=== PATIENT | female | born 1950 | race Caucasian/White ===

== ENCOUNTER → 2017-01-18 | Outpatient (CLI) | payer SELFPAY ==
--- NOTE | 2017-01-19 04:41 | RAD ---
Procedure: XR CHEST 2 VIEWS Exam Date: 01/18/2017 Ordering Provider: Mercy Graf Clinical Indication: PERSISTENT COUGH AND DYSPNEA Comparison: None Findings: Cardiac silhouette: Normal Pulmonary vasculature : Normal Mediastinal contour: Normal Aortic contour: Aortic calcification and tortuosity. Focal lung consolidation: No focal lung consolidation. Lungs are hyperinflated. Bibasilar scarring. Pleural effusion: No pleural effusion. Pneumothorax: None Acute bony or soft tissue abnormality: None Impression: 1. No acute abnormalities in the chest. 2. COPD. Electronically signed by: Hernan Gordon MD 01/19/2017 4:40 AM CDT
== END | disposition home or self-care (01) ==
LOC: RAD 12:45
PROVIDERS: ATTEND Nurse Practitioner Family
DX: J44.1 Chronic obstructive pulmonary disease with (acute) exacerbation (principal)

== ENCOUNTER → 2017-02-22 | Outpatient (CLI) | payer MEDICARE ==
[~2017-02-22] MED LIST: ALBUTEROL SULFATE 2.5 MG/3 ML VIAL NEB ONE
== END | disposition home or self-care (01) ==
LOC: RESP 13:55
PROVIDERS: ATTEND Nurse Practitioner Family
DX: J44.9 Chronic obstructive pulmonary disease, unspecified (principal); Z13.220 Encounter for screening for lipoid disorders; R53.83 Other fatigue; E78.01 Familial hypercholesterolemia; R63.6 Underweight
CPT/HCPCS: 36415; 80053; 80061; 84443; 85025; 93005; 94060; J7611

== ENCOUNTER 2017-05-14 17:11 | Emergency (ER) | payer MEDICARE ==
[2017-05-14 17:36] VITALS: BP 154/89; TEMP 97.2; O2SAT 94
[2017-05-14] MEDS ORDERED: predniSONE 20 MG TAB PO ONE (17:49)
--- NOTE | 2017-05-14 17:49 | ED.PDOC ---
History of Present Illness - General Chief Complaint: Bite: Animal/Insect/Human Stated Complaint: Insect Bite on L Forearm-localized edema Time Seen by Provider: 05/14/17 17:13 Source: patient Exam Limitations: no limitations - History of Present Illness Initial Comments: the patient is a 67-year-old female presenting secondary to swelling around the insect sting to her left forearm present for the last 2 days. This appears to be mainly an allergic hydrops. no respiratory symptoms. She is unsure what stung her but it didburn. No shortness of breath. No evidence of any infectious cellulitis. No evidence of tissue necrosis. Severity: mild Improving Factors: nothing Worsening Factors: nothing Associated Symptoms: denies symptoms Allergies/Adverse Reactions: Allergies Codeine Allergy (Verified 05/14/17 17:27) Tetracycline Allergy (Verified 05/14/17 17:27) Home Medications: Ambulatory Orders Albuterol Inhaler [Ventolin Hfa Inhaler] 1 puff INH Q4HR 05/14/17 Lisinopril 10 mg PO DAILY 05/14/17 Milk Thistle (Silybum Marianum [Milk Thistle] 500 mg PO DAILY 05/14/17 Multiple Vitamin [Multi Vitamin] 1 tab PO DAILY 05/14/17 Review of Systems - Review of Systems Constitutional: States: no symptoms reported EENTM: States: no symptoms reported Respiratory: States: no symptoms reported Cardiology: States: no symptoms reported Gastrointestinal/Abdominal: States: no symptoms reported Genitourinary: States: no symptoms reported Musculoskeletal: States: no symptoms reported Skin: States: see HPI Neurological: States: no symptoms reported Endocrine: States: no symptoms reported All other Systems: No Change from Baseline Past Medical History (General) - Patient Medical History Hx Stroke: No Hx of COPD: Yes Hx Congestive Heart Failure: No Hx Hypertension: Yes Hx Diabetes: No Hx Cancer: Yes - Cervical Hx Hepatitis C: No Surgical History: appendectomy, tonsillectomy - Vaccination History Hx Tetanus, Diphtheria Vaccination: No Hx Influenza Vaccination: No Hx Pneumococcal Vaccination: No - Social History Hx Tobacco Use: Yes Hx Chewing Tobacco Use: No Hx Alcohol Use: Yes Hx Substance Use: No Hx Substance Use Treatment: No Hx Depression: No Feels Threatened In Home Enviroment: No Feels Threatened In a Relationship: No Hx Physical Abuse: No Hx Emotional Abuse: No Hx Suspected Abuse: No - Female History Patient is a Female of Child Bearing Age (10 -59 yrs old): No Patient : No Family Medical History - Family History Grandparents Family History: Unknown Physical Exam - Physical Exam General Appearance: Alert, Comfortable, No apparent distress Eye Exam: bilateral normal Ears, Nose, Throat: hearing grossly normal Neck: full range of motion Respiratory: no respiratory distress, no accessory muscle use Cardiovascular/Chest: normal peripheral pulses, no edema Extremity: normal range of motion, non-tender, no pedal edema, normal capillary refill, other - he patient has mild edema to her left forearm where she had an insect sting. She is neurovascularly intact. Neurologic: alert, normal mood/affect, oriented x 3 Skin Exam: normal color - ee above Comments: Vital Signs - 8 hr 05/14/17 17:29 Temperature 97.2 F L Pulse Rate [R 82 Arm] Respiratory 18 Rate Blood Pressure 154/89 [R Arm] O2 Sat by Pulse 94 L Oximetry Progress - Progress Progress: 05/14/17 17:49 the patient is a 67-year-old female with a localized allergic reaction to an insect sting. The patient is given one dose of oral prednisone. No evidence of infection at this time. She needs to continue her home medications for her COPD. ER warnings were given for any significant worsening. - EKG/XRAY/CT CT Ordered: No CT Interpretation Call Back: No Departure - Departure Clinical Impression: Insect bites Qualifiers: Encounter type: initial encounter Qualified Code(s): W57.XXXA - Bitten or stung by nonvenomous insect and other nonvenomous arthropods, initial encounter Disposition: Discharge to Home or Self Care Condition: Fair Departure Forms: ED Discharge - Pt. Copy, Patient Portal Self Enrollment Instructions: DI for Insect Bites and Stings Diet: regular diet Activity: increase activity as tolerated Referrals: Tg López NP [Primary Care Provider] - 1-2 Weeks Home Medications: Ambulatory Orders Albuterol Inhaler [Ventolin Hfa Inhaler] 1 puff INH Q4HR 05/14/17 Lisinopril 10 mg PO DAILY 05/14/17 Milk Thistle (Silybum Marianum [Milk Thistle] 500 mg PO DAILY 05/14/17 Multiple Vitamin [Multi Vitamin] 1 tab PO DAILY 05/14/17 Additional Instructions: the patient is a 67-year-old female with a localized allergic reaction to an insect sting. The patient is given one dose of oral prednisone. No evidence of infection at this time. She needs to continue her home medications for her COPD. ER warnings were given for any significant worsening.
== END 2017-05-14 18:08 | disposition home or self-care (01) ==
LOC: ER 17:11
DX: S50.862A Insect bite (nonvenomous) of left forearm, initial encounter (principal); J44.9 Chronic obstructive pulmonary disease, unspecified; Z87.891 Personal history of nicotine dependence; Z85.41 Personal history of malignant neoplasm of cervix uteri; Z88.6 Allergy status to analgesic agent; Z88.3 Allergy status to other anti-infective agents; Z79.899 Other long term (current) drug therapy; W57.XXXA Bitten or stung by nonvenomous insect and other nonvenomous arthropods, initial encounter; Y92.9 Unspecified place or not applicable

== ENCOUNTER → 2017-12-08 | Outpatient (CLI) | payer MEDICARE ==
--- NOTE | 2017-12-11 08:07 | RAD ---
EXAM DESCRIPTION: Chest,2 Views CLINICAL HISTORY: 67 years Female, COPD COMPARISON: CT chest with contrast dated 12/08/2017. Radiographs of the chest dated 01/18/2017. TECHNIQUE: PA and lateral radiographs of the chest were obtained. FINDINGS: Trachea is midline.The cardiomediastinal silhouette is normal in size. The pulmonary vasculature is within normal limits. Hyperinflated lungs most likely secondary to emphysema. There is blunting of the bilateral costophrenic angles most likely secondary to atelectasis and/or scarring.No evidence of pleural effusions.No evidence of pneumothorax. IMPRESSION: Emphysema. Otherwise no gross radiographic abnormality. Electronically signed by: Madhavi Chan MD 12/11/2017 8:05 AM CDT
--- NOTE | 2017-12-11 08:25 | CT ---
EXAM DESCRIPTION: Chest w/Contrast CLINICAL HISTORY: 67 years Female, COPD COMPARISON: Radiographs of the chest dated 01/10/2017. TECHNIQUE: Contiguous thin section axial images through the chest were obtained after the administration of intravenous contrast. Sagittal and coronal reconstructions were reviewed. FINDINGS: The visualized thyroid gland and supraclavicular region appear normal. No evidence of abnormally enlarged mediastinal, hilar or axillary lymphadenopathy. Trachea is midline and the central tracheobronchial tree is patent. Severe emphysema is identified in both lungs, worse in the right upper lobe. Airspace opacities in the bilateral lower lobes most likely represent atelectasis. No nodules or masses are visualized. No evidence of pleural effusions. The heart is normal in size with no pericardial effusion. There is aneurysmal dilatation of the ascending aorta measuring up to 4.2 x 4.4 cm. Moderate atherosclerotic disease is noted in the descending thoracic aorta. The superior vena cava is normal in size and caliber. Moderate to severe coronary artery atherosclerosis. The esophagus appears normal throughout its visualized length. 5 mm calculus is noted in the interpolar region of the left kidney. No other abnormality is identified in the imaged upper abdomen. Mild degenerative changes are identified throughout the thoracic spine. Superior endplate wedging of T4 and T5 vertebral bodies is noted. IMPRESSION: 1. Severe emphysema with bibasilar atelectasis. 2. Ascending aortic aneurysm measuring 4.2 x 4.4 cm. 3. Nonobstructive 5 mm calculus is noted in the interpolar region of the left kidney. This exam was performed according to our departmental dose-optimization program, which includes automated exposure control, adjustment of the mA and/or kV according to patient size and/or use of iterative reconstruction technique. Electronically signed by: Madhavi Chan MD 12/11/2017 8:23 AM CDT
== END ==
LOC: CT 13:35
PROVIDERS: ATTEND Nurse Practitioner Family
DX: J44.9 Chronic obstructive pulmonary disease, unspecified (principal); I71.4 Abdominal aortic aneurysm, without rupture; N20.0 Calculus of kidney

== ENCOUNTER 2019-05-03 12:24 | Emergency (ER) | payer MEDICARE ==
--- NOTE | 2019-05-03 14:34 | RAD ---
EXAM DESCRIPTION: Forearm,Left CLINICAL HISTORY: 69 years Female, fall COMPARISON: None. FINDINGS/IMPRESSION: Two views of the left forearm demonstrate an impacted fracture with dorsal angulation of the distal radius with what appears to be an intact distal ulna. No definite carpal dislocation is seen but mild scapholunate dissociation is suspected. Radial fracture is at the metaphyseal level with modest dorsal angulation present. The mid and proximal forearm appears intact. Semiopaque splint along the ulnar aspect of the forearm is noted in place. Electronically signed by: Wojciech Covarrubias MD 05/03/2019 2:33 PM CDT
--- NOTE | 2019-05-03 14:37 | CT ---
EXAM DESCRIPTION: Head CLINICAL HISTORY: fall COMPARISON: None available TECHNIQUE: Non contrast cranial CT This exam was performed according to our departmental dose-optimization program, which includes automated exposure control, adjustment of the mA and/or kV according to patient size and/or use of iterative reconstruction technique. FINDINGS: Ventricles and sulci are unremarkable for age. There is no hemorrhage or mass or subdural hematoma. There are no significant white matter abnormalities detected. The calvarium is unremarkable. The visualized paranasal sinuses and the mastoids are clear. IMPRESSION: 1. Normal unenhanced head CT with no evidence of acute intracranial injury. Electronically signed by: Wojciech Covarrubias MD 05/03/2019 2:36 PM CDT
--- NOTE | 2019-05-03 14:44 | CT ---
EXAM DESCRIPTION: Cervical Spine CLINICAL HISTORY: fall COMPARISON: None Available. TECHNIQUE: Cervical CT is performed with thin-section axial imaging. MPRs are created and reviewed as well. This exam was performed according to our departmental dose-optimization program, which includes automated exposure control, adjustment of the mA and/or kV according to patient size and/or use of iterative reconstruction technique. FINDINGS: Cervical spine CT demonstrates preservation of normal cervical lordosis with approximately 3 mm of anterior subluxation C4 on C5 and degenerative disc narrowing and posterior bony ridging at C5-6 and 2 mm of anterior subluxation at the C6-7 level with disc space narrowing. Spinous processes appear intact. The ring of C1 and the odontoid process and ring of C2 are intact. There is no malalignment of the cranial cervical junction and the foramen magnum appears normal. Vertebral height is maintained at all levels with degenerative disc narrowing at C5-6 and C6-7. On the left facet arthropathy is most significant beginning at C4-5 and extending to the cervicothoracic junction. On the right facet arthropathy begins at C3-4 and is most significant at C4-5 and C5-6 and C6-7. No evidence of jumped facet is present. No laminar or transverse process fractures noted. Extensive vascular calcification within the carotid vessels is evident. Disc contours demonstrate a small central protrusion at C2-3 and C3-4 and annular bulge at the subluxed C4-4-5 level and posterior bony ridging predominantly left-sided at C5-6. Disc contour is not well seen below the C5-6 level. IMPRESSION: 1. Multilevel moderately advanced degenerative disc disease most prominent at C5-6 and C6-7 and multilevel bilateral facet arthropathy. 2. Degenerative ligamentous laxity with mild 3 mm anterior subluxation C4-5 and 2 mm retrolisthesis at C5-6 with bony ridging and anterolisthesis at C6-7 and C7-T1. 3. No acute fracture or dislocation or compromise of the central canal noted. 4. Disc contours in the mid and upper cervical spine as described above. Electronically signed by: Wojciech Covarrubias MD 05/03/2019 2:43 PM CDT
--- NOTE | 2019-05-03 14:46 | RAD ---
EXAM DESCRIPTION: Chest,1 View CLINICAL HISTORY: 69 years Female, fall COMPARISON: December 08, 2017 TECHNIQUE: AP portable chest. FINDINGS: Calcified tortuous aortic arch and descending aorta with modest cardiomegaly and more prominent vascularity suggesting borderline volume overload and interstitial vascular congestion is present. Pleural effusions or pneumothorax or hemothorax is not apparent. Visualized chest wall appears intact and subcutaneous air is not apparent. No dense infiltrates or consolidation or mass noted. IMPRESSION: Mild cardiomegaly and mild central vascular congestion with borderline interstitial vascular prominence. Electronically signed by: Wojciech Covarrubias MD 05/03/2019 2:45 PM CDT
--- NOTE | 2019-05-03 14:47 | RAD ---
EXAM DESCRIPTION: Femur,Right CLINICAL HISTORY: 69 years Female, fall COMPARISON: None. FINDINGS/IMPRESSION: Two views of the right femur demonstrate osteopenia. Small calcific densities just inferior to the femoral head suggests the possibility of intra-articular loose bodies within the joint space no fracture or dislocation or deformity related to acute trauma is seen. Joint spaces well-maintained. Electronically signed by: Wojciech Covarrubias MD 05/03/2019 2:46 PM CDT
--- NOTE | 2019-05-03 14:48 | RAD ---
EXAM DESCRIPTION: Knee,Right Complete CLINICAL HISTORY: 69 years, Female, fall COMPARISON: None TECHNIQUE: Three views of the right knee FINDINGS: Right knee is osteopenic. Joint space is maintained and no significant joint effusion noted. No fracture or dislocation is seen. IMPRESSION: 1. Osteopenia otherwise negative right knee. Electronically signed by: Wojciech Covarrubias MD 05/03/2019 2:47 PM CDT
--- NOTE | 2019-05-03 14:50 | RAD ---
EXAM DESCRIPTION: Wrist,Left 3 Views CLINICAL HISTORY: 69 years, Female, fall COMPARISON: None TECHNIQUE: AP/ lateral/ oblique views of the left wrist. FINDINGS: Three views left wrist demonstrate a dorsally angulated fracture of the distal radius. Slight comminution is suspected. No evidence of carpal dislocation is seen. Advanced sclerotic and hypertrophic degenerative changes at the base of the thumb at the carpal metacarpal articulation is present. Semiopaque splint overlies the volar surface of the forearm and wrist. The bones are osteopenic. The distal ulna appears intact. IMPRESSION: 1. Dorsally angulated fracture of the distal left radius with slight comminution and likely extension into the articular surface. Electronically signed by: Wojciech Covarrubias MD 05/03/2019 2:49 PM CDT
--- NOTE | 2019-05-03 14:58 | CT ---
EXAM DESCRIPTION: Pelvis CLINICAL HISTORY: 69 years Female, fall COMPARISON: None. TECHNIQUE: This exam was performed according to our departmental dose-optimization program, which includes automated exposure control, adjustment of the mA and/or kV according to patient size and/or use of iterative reconstruction technique. Noncontrast imaging of the pelvis with MPR reformatted images FINDINGS: Extensive vascular calcification is evident. Extensive diverticulosis of the colon is noted. A small amount of free pelvic fluid in the cul-de-sac is present but of uncertain significance in this patient with trauma. Bladder is well-distended and does not appear to be injured or ruptured. A small anteverted uterus is noted. Bone window images demonstrate osteopenia of the bony structures. There is grade 1 degenerative spondylolisthesis of L4 on L5 with advanced facet arthropathy. The sacrum and coccyx appears intact with normal segmentation and normal anterior angulation of the coccyx. Iliac wings as well as the acetabula and superior and inferior pubic rami appear intact. No disruption of either SI joint or symphysis pubis or the medial side peter of each hip joint noted. Femoral head and neck and trochanteric region of each hip appears intact. Within the pelvis and anteverted uterus and distended bladder is noted with small amount of free pelvic fluid in the cul-de-sac estimated between 10 and 20 mL and of uncertain significance. Possibility of fluid from an upper abdominal injury could not be entirely excluded in this patient with a history of acute trauma. The anterior pelvic wall appears intact. IMPRESSION: 1. Osteopenia and mild degenerative changes but intact appearance of the bony pelvis and sacrum and hips bilaterally without acute fracture. Incidental note of grade 1 degenerative spondylolisthesis at the L4-5 level is evident. 2. Normally distended bladder and anteverted small uterus and moderate sigmoid colonic diverticulosis. A modest amount estimated 10 to 20 mL of free pelvic fluid in the cul-de-sac is of uncertain significance. A source of acute trauma within the pelvis is not evident but the possibility of free pelvic fluid from mid or upper abdominal injury could not be excluded. Correlation with any history of upper mid abdominal trauma recommended. Electronically signed by: Wojciech Covarrubias MD 05/03/2019 2:56 PM CDT
[2019-05-03] MEDS ORDERED: LIDOCAINE 1% W/ EPINEPHRINE 20 ML VIAL INJ ONE (15:43)
[2019-05-03] MEDS ORDERED: THIAMINE HCL INJ 100 MG/ML VIAL ONE (15:44)
[2019-05-03] MEDS ORDERED: FOLIC ACID INJ 5 MG/ML VIAL IV ONE (15:45)
--- NOTE | 2019-05-03 15:45 | ED.PDOC ---
History of Present Illness - General Chief Complaint: Trauma Stated Complaint: Fall Time Seen by Provider: 05/03/19 12:33 - History of Present Illness Initial Comments: 69yo F who presents for fall today. The patient has been reported to be more dizzy and unstable over the past few days. Today, she sustained a fall onto an outstretched L arm and struck her right forehead. She also complains of R hip and knee pain. The patient is arousable and answers questions, but does seem slightly altered. EMS did give fentanyl in route. Family denies recent illness or fever. The patient is a daily, persistent beer drinker and does not generally take good care of her self. She takes lisinopril and uses and inhaler for COPD. They state she has been eating and drinking less lately. No other reported issues. Allergies/Adverse Reactions: Allergies Codeine Allergy (Verified 05/03/19 14:40) Tetracycline Allergy (Verified 05/03/19 14:40) Home Medications: Ambulatory Orders Albuterol Inhaler [Ventolin Hfa Inhaler] 1 puff INH Q4HR 05/14/17 Milk Thistle (Silybum Marianum [Milk Thistle] 500 mg PO DAILY 05/14/17 Multiple Vitamin [Multi Vitamin] 1 tab PO DAILY 05/14/17 RX: Lisinopril 10 mg PO DAILY 05/14/17 Review of Systems - Review of Systems Constitutional: States: weakness. Denies: chills, fever EENTM: Denies: blurred vision, double vision, nose congestion Respiratory: States: wheezing. Denies: cough, short of breath Cardiology: Denies: chest pain, palpitations Gastrointestinal/Abdominal: Denies: abdominal pain, diarrhea, nausea, vomiting Musculoskeletal: States: joint pain, joint swelling, muscle pain, neck pain Skin: Denies: change in color, rash Neurological: States: other - Dizziness. Denies: numbness, seizure, weakness Endocrine: Denies: unexplained weight gain, unexplained weight loss Past Medical History (General) - Patient Medical History Hx Stroke: No Hx of COPD: Yes Hx Congestive Heart Failure: No Hx Hypertension: Yes Hx Diabetes: No Hx Cancer: Yes - Cervical Hx Hepatitis C: No - Vaccination History Hx Tetanus, Diphtheria Vaccination: No Hx Influenza Vaccination: No Hx Pneumococcal Vaccination: No - Social History Hx Tobacco Use: Yes Hx Chewing Tobacco Use: No Hx Alcohol Use: Yes Hx Substance Use: No Hx Substance Use Treatment: No Hx Depression: No Hx Physical Abuse: No Hx Emotional Abuse: No Hx Suspected Abuse: No - Female History Patient : No Family Medical History - Family History Grandparents Family History: Unknown Physical Exam - Physical Exam General Appearance: Frail, Other - Seems somewhat sedate, but arouses easily and answers questions Head Injury: contusions - R forehead, lacerations - 1 cm to R forehead Eye Exam: bilateral normal - No e/o occular trauma, EOMI ENT Exam: no evidence of ENT injury, no dental injury Neck Exam: paraspinous muscle tender - No midline tenderness Cardiovascular/Respiratory: normal peripheral pulses, normal breath sounds, no respiratory distress, tachycardia Gastrointestinal/Abdominal: non tender, soft Genitalia: normal genital exam - External Back Exam: normal inspection, no CVA tenderness, no vertebral tenderness Extremity Exam: pelvis stable, tenderness - Tender to L wrist with deformity. NV intact. No wounds. R knee abrasion. Tender with ROM of R hip. NV intact in all extremities. 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 Left axis, nl intervals. No ST segment elevation. 05/03/19 16:53 The patient has mult findings most notably hyponatremia. Suspect this is hypovolemic in nature. Could be medication induced, ETOH induced or combination vs alternate contributors. The patient is an active heavy drinker. Thiamine and Folate given. I've initiated fluid resus with NS. The patient is slightly tachycardic, nl WBC. Abx given to cover for occult infection as a possible confounding element in context of UA findings and hx of intermittent cough per recently arrived family member. The patient has a moderately displaced, complex distal radius fracture (left). No NV compromise. Will defer reduction receiving facility given risk of sedation given her condition. Sugar tong placed. No acute IC findings or cervical findings. Laceration of forehead repaired without complication. CT and XR of pelvis and RLE are unremarkable. Free fluid in abdomen is mild and I have a low suspicion for acute intra- abdominal injury. Her abdomen is non-tender at this time. The case was discussed with ED physician at [facility] who has accepted transfer. - Results/Orders Results/Orders: Laboratory Results - last 24 hr 05/03/19 05/03/19 05/03/19 13:00 13:00 16:06 WBC 6.0 RBC 4.81 Hgb 10.1 L Hct 34.2 L MCV 71.1 L MCH 21.0 L MCHC 29.6 L RDW 19.6 H Plt Count 190 MPV 6.9 L Absolute Neuts (auto) 4.80 Absolute Lymphs (auto) 0.40 L Absolute Monos (auto) 0.80 Absolute Eos (auto) 0.00 Absolute Basos (auto) 0.00 Neutrophils % 79.3 H Lymphocytes % 6.4 L Monocytes % 13.7 H Eosinophils % 0.1 L Basophils % 0.5 Normal RBC Morphology 1+microcytosis Sodium 113 L* Potassium 4.1 Chloride 72 L* Carbon Dioxide 29 Anion Gap 16.1 BUN < 5 L Creatinine < 0.40 L BUN/Creatinine Ratio 12.0 Random Glucose 145 H Serum Osmolality 226.8 L* Calcium 8.3 L Total Bilirubin 1.5 H AST 47 H ALT 30 Alkaline Phosphatase 44 Serum Total Protein 7.1 Albumin 3.5 Globulin 3.6 H Albumin/Globulin Ratio 1.0 L Urine Color Yellow Urine Appearance Clear Urine pH 6.0 Ur Specific [place] >= 1.030 Urine Protein Negative Urine Glucose (UA) Negative Urine Ketones Trace Urine Blood Trace-intact H Urine Nitrite Negative Urine Bilirubin Negative Urine Urobilinogen 4.0 H Ur Leukocyte Esterase Trace H Urine RBC 0-1 Urine WBC 5-10 H Ur Epithelial Cells 0 Urine Bacteria 3+ H - EKG/XRAY/CT EKG: Sinus, Tachy, no ST T wave changes Comments: Normal axis Xray Comments: L Wrist: Fx distal radius with angulation. Femur/Knee: neg. See rads read. CT: Pelvis: No fx. CT head and cervical: no acute findings. See rads read. Procedures - Laceration/Wound Repair Head Wound Length (cm): 1 Wound's Depth, Shape: linear Wound Explored: clean Irrigated w/ Saline (cc's): 500 Betadine Prep?: No Anesthesia: Lidocaine w/ Epi Wound Debrided: minimal Wound Repaired With: sutures Suture Size/Type: 5:0, prolene Number of Sutures: 3 Layer Closure?: No Sterile Dressing Applied?: Yes Progress: Small 1 cm laceration. Wound repaired without complication. Tolerated well. Departure - Departure Clinical Impression: Hyponatremia, ETOH abuse Head contusion Qualifiers: Encounter type: initial encounter Contusion of head detail: scalp Qualified Code(s): S00.03XA - Contusion of scalp, initial encounter Radius distal fracture Qualifiers: Encounter type: initial encounter Fracture type: closed Fracture morphology: unspecified fracture morphology Laterality: left Qualified Code(s): S52.502A - Unspecified fracture of the lower end of left radius, initial encounter for closed fracture Knee contusion Qualifiers: Encounter type: initial encounter Laterality: right Qualified Code(s): S80.01XA - Contusion of right knee, initial encounter Contusion, hip Qualifiers: Encounter type: initial encounter Laterality: right Qualified Code(s): S70.01XA - Contusion of right hip, initial encounter Laceration of forehead Qualifiers: Encounter type: initial encounter Qualified Code(s): S01.81XA - Laceration without foreign body of other part of head, initial encounter Disposition: Transfer to Hospital Condition: Fair Referrals: [facility] [Primary Care Provider] - 1-2 Weeks Home Medications: Ambulatory Orders Albuterol Inhaler [Ventolin Hfa Inhaler] 1 puff INH Q4HR 05/14/17 Milk Thistle (Silybum Marianum [Milk Thistle] 500 mg PO DAILY 05/14/17 Multiple Vitamin [Multi Vitamin] 1 tab PO DAILY 05/14/17 RX: Lisinopril 10 mg PO DAILY 05/14/17
[2019-05-03] MEDS ORDERED: FOLIC ACID INJ 5 MG/ML VIAL ONE (15:46)
[2019-05-03] MEDS ORDERED: THIAMINE HCL INJ 100 MG/ML VIAL IV ONE (15:48)
[2019-05-03] MEDS ORDERED: cefTRIAXone SODIUM 1 GM in SODIUM CHL 0.9% 50ML MIN-BAG+ 50 ML IVPB ONE (16:05)
[2019-05-03] MEDS ORDERED: cefTRIAXone SODIUM 1 GM VIAL ONE (16:25)
[2019-05-03] MEDS ORDERED: SODIUM CHL 0.9% 50ML MIN-BAG+ 50 ML IVPB ONE (16:27)
[2019-05-03 16:45] VITALS: BP 92/66; TEMP 97.9; O2SAT 95
== END 2019-05-03 16:55 | disposition short-term general hospital (02) ==
LOC: ER 12:24
DX: S00.03XA Contusion of scalp, initial encounter (principal); E87.1 Hypo-osmolality and hyponatremia; S52.502A Unspecified fracture of the lower end of left radius, initial encounter for closed fracture; S01.81XA Laceration without foreign body of other part of head, initial encounter; F10.129 Alcohol abuse with intoxication, unspecified; S70.01XA Contusion of right hip, initial encounter; S80.01XA Contusion of right knee, initial encounter; R00.0 Tachycardia, unspecified; R42 Dizziness and giddiness; J44.9 Chronic obstructive pulmonary disease, unspecified; I10 Essential (primary) hypertension; Z87.891 Personal history of nicotine dependence; Z85.41 Personal history of malignant neoplasm of cervix uteri; Z79.899 Other long term (current) drug therapy; Z88.5 Allergy status to narcotic agent; Z88.3 Allergy status to other anti-infective agents; W01.0XXA Fall on same level from slipping, tripping and stumbling without subsequent striking against object, initial encounter; Y92.480 Sidewalk as the place of occurrence of the external cause
CPT/HCPCS: 36415; 70450; 71045; 72125; 72192; 73090; 73110; 73551; 73562; 80053; 81001; 85025; 93005; J0696; J3411; J7050

== ENCOUNTER → 2019-05-23 | Outpatient (CLI) | payer MEDICARE ==
--- NOTE | 2019-05-23 12:58 | RAD ---
EXAM DESCRIPTION: Wrist,Left 3 Views CLINICAL HISTORY: 69 years Female, PAIN IN LEFT WRIST COMPARISON: None available. FINDINGS: The visualized bones are poorly mineralized. Comminuted fracture of the distal metaphysis of the radius with impaction of the fracture fragments. Widening of the scapholunate interval is identified consistent with ligamentous injury. Moderate to severe degenerative changes of the first carpometacarpal joint. Diffuse soft tissue swelling of the wrist. IMPRESSION: Comminuted and impacted fracture of the distal metaphysis of the radius with associated soft tissue swelling. Widening of the scapholunate interval. Electronically signed by: Madhavi Chan MD 05/23/2019 12:57 PM CDT
== END ==
LOC: RAD 11:04
PROVIDERS: ATTEND Orthopaedic Surgery
DX: S52.502D Unspecified fracture of the lower end of left radius, subsequent encounter for closed fracture with routine healing (principal)

== ENCOUNTER → 2019-05-24 | Day surgery (SDC) | payer MEDICARE ==
--- NOTE | 2019-05-23 15:08 | RAD ---
EXAM DESCRIPTION: Chest,2 Views CLINICAL HISTORY: 69 years Female, pre op COMPARISON: 05/03/2019. TECHNIQUE: PA and lateral radiographs of the chest were obtained. FINDINGS: Trachea is midline.The cardiomediastinal silhouette is normal in size. The pulmonary vasculature is within normal limits. Bilateral lower lobe airspace opacities could represent atelectasis and/or pneumonia. IMPRESSION: Bilateral lower lobe airspace opacities could represent atelectasis and/or pneumonia. Electronically signed by: Madhavi Chan MD 05/23/2019 3:06 PM CDT
== END ==
LOC: AMB 05:26
PROVIDERS: ATTEND Orthopaedic Surgery
DX: Z01.818 Encounter for other preprocedural examination (principal); Z53.8 Procedure and treatment not carried out for other reasons